=== PATIENT | female | born 1995 | race Caucasian/White ===

== ENCOUNTER 2016-04-03 23:48 | Emergency (ER) | payer OTHER ==
[~2016-04-03] VITALS: Ht 154.9 cm; Wt 60.5 kg
[~2016-04-03 23:48] MED LIST: IBUPROFEN200 M1 PO; VICODIN,LORT1 TABLET PO; birth control
[2016-04-04 00:03] VITALS: BP 140/9
== END 2016-04-04 01:32 | disposition home or self-care (01) ==
LOC: EME 23:48 → EXP 23:48
DX: S90.122A Contusion of left lesser toe(s) without damage to nail, initial encounter (principal); W22.09XA Striking against other stationary object, initial encounter; Y93.02 Activity, running; F17.200 Nicotine dependence, unspecified, uncomplicated
CPT/HCPCS: 73660; 99281; 99283

== ENCOUNTER → 2016-04-27 19:05 | Emergency (ER) | payer OTHER | END | disposition left against medical advice (07) | LOC: EME 19:05 | DX: J02.9 Acute pharyngitis, unspecified (principal); Z53.21 Procedure and treatment not carried out due to patient leaving prior to being seen by health care provider | CPT/HCPCS: 87651 90 ==